=== PATIENT | male | born 1995 | race Caucasian/White ===

== ENCOUNTER 2023-08-17 08:10 | Emergency (ER) | payer SELFPAY ==
[2023-08-17 08:30] VITALS: O2SAT 100
--- NOTE | 2023-08-17 08:30 | ED Physician Documentation ---
PD HPI GI BLEED - Stated complaint Stated Complaint: MALE - Chief complaint Chief Complaint: General - History obtained from History obtained from: Patient - History of Present Illness Timing - onset: Yesterday Timing - duration: Days (had noted tenderness at rectum with wiping for few days and thought maybe hemorrhoids. then noted BRBPR with BM last night and has had continued dribbling of red blood in underwear overnight and into this morning.) Timing - details: Gradual onset, Still present Associated symptoms: BRBPR Similar symptoms before: Has not had sx before PD PAST MEDICAL HISTORY - Past Medical History Past Medical History: Yes Cardiovascular: None Respiratory: Other Neuro: None Endocrine/Autoimmune: None GI: None : None HEENT: None Psych: None Musculoskeletal: None Derm: None Other Past Medical History: Sleep apnea - Past Surgical History Past Surgical History: No - Present Medications Home Medications: Ambulatory Orders Medication Instructions Recorded Confirmed Acetaminophen [Tylenol] 1 tab PO PRN PRN 08/17/23 08/17/23 Hydrocortisone Supp [Anusol-Hc] 25 mg KS DAILY 5 Days #5 supp 08/17/23 Hydrocortisone [Anusol-Hc] 30 gm RC BID #30 gm 08/17/23 Ibuprofen [Advil] 1 tab PO PRN PRN 08/17/23 08/17/23 - Allergies Allergies/Adverse Reactions: Allergies Allergy/AdvReac Type Severity Reaction Status Date / Time No Known Drug Allergies Allergy Verified 08/17/23 08:32 - Social History Does the pt smoke?: No Smoking Status: Never smoker Does the pt drink ETOH?: Yes ETOH Use: Liquor Does the pt have substance abuse?: No - Immunizations Immunizations are current?: Yes - POLST Patient has POLST: No PD ED PE NORMAL - Vitals Vital signs reviewed: Yes - General General: Alert and oriented X 3, Well developed/nourished, Other (large BMI) - Abdomen Abdomen: Soft, Non tender - Rectal Rectal: Other (external hemorrhoid with some mild bleeding and clot in place. digital exam deferred. ) Results - Vitals Vitals: Vital Signs - 24 hr 08/17/23 08/17/23 08:20 09:05 Temperature 36.8 C Heart Rate 114 H 96 Respiratory 14 16 Rate Blood Pressure 174/92 H 142/89 H O2 Saturation 100 100 Oxygen O2 Source Room air PD Medical Decision Making - ED course Complexity details: considered differential (external hemorrhoid with bleeding, not thrombosed. ), d/w patient Departure - Departure Disposition: 01 Home, Self Care Clinical Impression: Hemorrhoid, Rectal bleed Condition: Stable Record reviewed to determine appropriate education?: Yes Instructions: ED Hemorrhoids Prescriptions: Hydrocortisone Supp [Anusol-Hc] 25 mg KS DAILY 5 Days #5 supp Hydrocortisone [Anusol-Hc] 30 gm RC BID #30 gm Comments: You do appear to have a bleeding hemorrhoid. Because it is outside of the anus/rectal muscle, it that is what allows it to bleed steadily without being associated with just bowel movements. It is less common for them to bleed as much as this 1 is but still not dangerous. It does not appear infected or thrombosed. It should decrease bleeding as the inflammation of it decreases. Would use anti-inflammatory/hemorrhoid cream and suppositories over the next 3 to 5 days. You can sit in a warm water tub to help clean out and allow better flow of any clotted blood from the hemorrhoid. This will help to deflate as well. Recheck if not better over the next several days and return if more painful, increased bleeding, fevers etc. I sent your prescription to your preferred pharmacy. Forms: PCP List Discharge Date/Time: 08/17/23 09:05
[2023-08-17] MEDS: ACETAMINOPHEN 500 MG TABLET PO STA (08:53)
[2023-08-17] MEDS: HYDROCORTISONE 25 MG SUPPOSITORY PR STA (08:54)
[2023-08-17 09:19] VITALS: BP 142/89
== END 2023-08-17 09:05 | disposition home or self-care (01) ==
LOC: ED 08:10
DX: K64.5 Perianal venous thrombosis (principal)
CPT/HCPCS: 99282; 99283; A9270; J3490